=== PATIENT | female | born 1965 | race Caucasian/White ===

== ENCOUNTER → 2020-09-02 13:26 | Outpatient (CLI) | payer OTHER, SELFPAY ==
[2020-09-02] MEDS: COVID-19 VACC #1, MRNA(MOD) 100 MCG/0.5 ML VIAL IM (13:35)
== END ==
PROVIDERS: Visit Provider Internal Medicine
DX: Z23 Encounter for immunization (principal)
CPT/HCPCS: 0011A; 91301

== ENCOUNTER → 2020-09-30 13:20 | Outpatient (CLI) | payer OTHER, SELFPAY ==
[2020-09-30] MEDS: COVID-19 VACC #2, MRNA(MOD) 100 MCG/0.5 ML VIAL IM (13:28)
== END ==
PROVIDERS: Visit Provider Internal Medicine
DX: Z23 Encounter for immunization (principal)
CPT/HCPCS: 0012A; 91301

== ENCOUNTER 2024-11-22 22:57 | Emergency (ER) | payer BC, SELFPAY ==
--- NOTE | 2024-11-22 23:05 | EKG_ITS ---
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
[2024-11-22 23:12] VITALS: BP 123/77; PULSE 71; RESP 17; TEMP 36.8; O2SAT 98; BMI 34.7
--- NOTE | 2024-11-22 23:12 | DI.RAD.S_ITS ---
PROCEDURE: XR CHEST 1V INDICATIONS: Chest Pain, dizziness, leg pain, headache TECHNIQUE: One view of the chest was acquired. COMPARISON: None. FINDINGS: Surgical changes and devices: None. Lungs and pleura: Lungs are clear. No pleural effusions or pneumothorax. Mediastinum: Mediastinal contours appear normal. Heart size is normal. Bones and chest wall: No suspicious bony lesions. Overlying soft tissues appear unremarkable. IMPRESSION: No acute pulmonary process. Dictated by: Ros Brown M.D. on 11/22/2024 at 23:35 Approved by: Ros Brown M.D. on 11/22/2024 at 23:36
[2024-11-22 23:13] VITALS: PULSE 76; O2SAT 96
--- NOTE | 2024-11-22 23:22 | ED.CHESTPAIN ---
HPI - Chest Pain General Chief Complaint: Chest Pain Stated Complaint: Lt Leg pain, Dizziness, sweating, Headache Time Seen by Provider: 11/22/24 23:22 Source: patient Mode of arrival: Ambulatory History of Present Illness HPI narrative: 59-year-old female history of insomnia, anxiety, depression, going through divorce right now finished watching a movie tonight started to develop left leg pain behind the knee and went to the kitchen got dizzy lightheaded and sweaty and started to have jaw discomfort in left shoulder pain as well but denied active chest pain, shortness of breath, dyspnea on exertion, cough, sore throat. Other than what is stated 14 point review of system is negative. Related Data Home Medications ?Medication ?Instructions ?Recorded ?Confirmed cholecalciferol (vitamin D3) 25 25 mcg PO DAILY 06/07/24 06/07/24 mcg (1,000 unit) capsule vit B5 50 mg-B6 25 mg-PABA 25 cap PO DAILY 06/07/24 06/07/24 ls-mkwuvrclt-olvfstbm-P.ginseng capsule Previous Rx's ?Medication ?Instructions ?Recorded estradiol 0.01% (0.1 mg/gram) See Rx Instructions vaginal 06/07/24 vaginal cream (Estrace) .COMPLEX #42.5 grams trazodone 50 mg tablet 50 - 100 mg (1 - 2 x 50 mg) PO 06/07/24 BEDTIME PRN insomnia #60 tabs fluoxetine 20 mg capsule (Prozac) 20 mg PO DAILY #30 caps 09/20/24 lorazepam 0.5 mg tablet 0.25 - 0.5 mg (0.5 - 1 x 0.5 mg) 09/20/24 PO BID PRN anxiety #60 tabs Allergies Allergy/AdvReac Type Severity Reaction Status Date / Time No Known Drug Allergies Allergy Unverified 11/22/24 23:14 Review of Systems Review of Systems ROS Unobtainable: All systems reviewed & are unremarkable except as noted in HPI and below Patient History Medical History (Updated 11/23/24 @ 02:59 by Luis Frias DO) Insomnia JUDITH (generalized anxiety disorder) Major depression Marital conflict Depression (~1979) Mumps (~1974) Chicken pox (~1975) Vasomotor symptoms due to menopause Postmenopausal atrophic vaginitis Surgical History (Updated 01/16/24 @ 20:46 by Bethany Waterman) Anesthesia History of colonoscopy (~2020) History of tubal ligation (~01/1998) History of dilatation and curettage (~04/1996) Status post tubal ligation Family History (Updated 01/16/24 @ 20:47 by Bethany Waterman) Mother Fall Social History Smoking Status: Never smoker Smoking Status: Never smoker Exam Narrative Exam Narrative: GENERAL: [59] year old patient appears stated age. Well-developed patient, in mild distress. HEAD: Atraumatic. Normocephalic. EYES: Pupils equal round and reactive. Extraocular motions intact. No scleral icterus. No injection or drainage. ENT: Nose without bleeding, purulent drainage. Throat without erythema, tonsillar hypertrophy or exudate. Airway patent. NECK: Trachea midline. Non tender CARDIOVASCULAR: Regular rate and rhythm without murmurs, gallops, or rubs. RESPIRATORY: Clear to auscultation. Breath sounds equal bilaterally. No wheezes, rales, or rhonchi. GASTROINTESTINAL: Abdomen soft, non-tender, nondistended. EXTREMITIES: No edema or joint tenderness. Equal and symmetrical calf girth, nontender to palpation of bilateral calves and thighs motor sensory intact +2 DP +2 PT cap refill less than 2nd of left and right leg BACK: Nontender without deformity or crepitance. No flank tenderness. NEURO: AOx3. SKIN: No rash or erythema of visible areas Initial Vital Signs Initial Vital Signs: Vital Signs Temperature 98.2 F 11/22/24 23:12 Pulse Rate 71 11/22/24 23:12 Respiratory Rate 17 11/22/24 23:12 Blood Pressure 123/77 11/22/24 23:12 Pulse Oximetry 98 11/22/24 23:12 Oxygen Delivery Method Room Air 11/22/24 23:12 Scores HEART Score Heart Score history: Slightly Suspicious Heart Score EKG: Normal Heart Score Age: 45-64 years old Heart Score risk factors: No known risk factors Heart Score troponin: < or = to normal limit Heart Score Total: 1 Course Orders Ordered: ED Orders 11/22/24 23:05 EKG-12 Lead Stat 11/22/24 23:12 XR chest 1V Stat 11/22/24 23:17 Complete Blood Count AUTO DIFF Stat Comprehensive Metabolic Panel Stat Lipase Stat Magnesium Stat NT-proBNP (BNP-Adult 18+) Stat PTT Partial Thromboplastin [place] Stat Prothrombin Time INR Stat Troponin & CK Cardiac Panel Stat 11/22/24 23:41 D Dimer Stat Discontinued Medications Aspirin (Aspirin 81 Mg Chew Tab) 324 mg PO NOW ONE Stop: 11/22/24 23:13 Last Admin: 11/22/24 23:24 Dose: 324 mg Documented By: RADHA Vital Signs Vital signs: Vital Signs - 8 hr 11/22/24 23:12 Temperature 98.2 F Pulse Rate 71 Respiratory Rate 17 Blood Pressure 123/77 Pulse Oximetry 98 Oxygen Delivery Method Room Air MDM - Chest Pain Lab Data 11/22/24 23:17 11/22/24 23:17 Labs: Lab Results 11/22/24 Range/Units 23:17 WBC 6.3 (4.5-11.0) X10^3/uL RBC 4.26 (4.0-5.2) X10^6/uL Hgb 13.1 (12.0-16.0) g/dL Hct 38.0 (36-46) % MCV 89.2 (80-100) fL MCH 30.6 (26-34) PG MCHC 34.4 (30-36) % RDW 13.5 (11.6-14.8) % Plt Count 238 (150-400) X10^3/uL Neut % (Auto) 43.5 L (50-75) % Lymph % (Auto) 42.8 H (25-40) % Ray % (Auto) 11.0 (3-14) % Eos % (Auto) 1.4 L (2-4) % Baso % (Auto) 1.3 (0-2) % Neut # (Auto) 2700 (4541-7530) /uL Lymph # (Auto) 2700 (5727-6475) /uL Ray # (Auto) 700 (0-900) /uL Eos # (Auto) 100 (0-450) /uL Baso # (Auto) 100 (0-100) /uL PT 11.4 (9.4-12.5) SECONDS INR 1.0 (0.9-1.3) APTT 25 L (25.1-36.5) SECONDS Imaging Data CT scan - chest: Radiologist's Impression: [address] [address] [address] Scan Report Signed Patient: AliamaddiebacilioRamila (MEREDITH) [place] MR#: [id number] : 1965 Acct:[id number] Age/Sex: 59 / F Date of Service: 11/23/24 Loc: ED Accession Number: [id number] Procedure: CT angio chest PE protocol Ordering Provider: Luis Frias D.O. PROCEDURE: CT ANGIO CHEST PE PROTOCOL INDICATIONS: dizziness, elevated dimer TECHNIQUE: After the administration of intravenous contrast, 2 mm thick sections acquired from the pulmonary apices to the posterior costophrenic angles. 3-dimensional maximum intensity projection (MIP) coronal and sagittal reformats were then acquired through the thorax. For radiation dose reduction, the following was used: automated exposure control, adjustment of mA and/or kV according to patient size. COMPARISON: None. FINDINGS: Image quality: Diagnostic. Pulmonary arteries: Pulmonary arteries are normal in size, and demonstrate no intraluminal filling defects to suggest central pulmonary embolism. Lower Neck: No enlarged lymph nodes. Thyroid: No thyroid nodules which require sonographic follow up, per consensus guidelines. Axillae: No enlarged lymph nodes. Chest Wall: Unremarkable. Bones: Unremarkable. Lungs and Pleura: No pneumothorax or pleural effusions. No consolidation or suspicious nodules. Heart: Heart size is normal. No pericardial effusion. Thoracic Vessels: No aortic aneurysm. Mediastinum and Camila: No enlarged lymph nodes. Esophagus: No wall thickening. No hiatal hernia. Upper Abdomen: Visualized upper abdomen solid organs and bowel loops appear normal. IMPRESSION: No pulmonary embolus. No acute cardiopulmonary process. Dictated by: Ros Brown M.D. on 11/23/2024 at 1:11 Approved by: Ros Brown M.D. on 11/23/2024 at 1:11 US - DVT: Radiologist's Impression: [place] [address] Ultrasound Report Signed Patient: Ramila ToroMEREDITHAlfonso Mohamud MR#: [id number] : 1965 Acct:[id number] Age/Sex: 59 / F Date of Service: 11/23/24 Loc: ED Accession Number: [id number] Procedure: US periph venous low extrem lt Ordering Provider: Luis Frias D.O. PROCEDURE: US PERIPH VENOUS LOW EXTREM LT INDICATIONS: leg pain elevated dimer TECHNIQUE: Real-time imaging, as well as color and pulse Doppler interrogation, were performed of the lower extremity deep veins from the inguinal ligament to the popliteal fossa, with documentation of the visualized calf veins. COMPARISON: None. FINDINGS: The common femoral, femoral, popliteal, and the visualized calf veins are normally compressible, and free of intraluminal thrombus. Color and pulse Doppler demonstrate normal phasic intraluminal flow. There is normal augmentation response to distal compression maneuver. IMPRESSION: No findings of lower extremity deep venous thrombosis. ECG Data Interpretation: NSR HR 75 HI 168 QRS [address]-t wave change No previous EKG to compare MDM Narrative Medical decision making narrative: All lab work, vital signs, nurse triage note, medication list, previous ER visits, and all imaging studies reviewed. Two sets troponin negative. Heart score 1. Chest x-ray showed no acute process. Ultrasound showed no acute DVT. CTA chest showed no acute PE or any acute cardiopulmonary process. Differential diagnosis includes PE DVT STEMI NSTEMI GERD anxiety. DC home to return with new or worsening symptoms and to follow up with PCP in 1-2 weeks if no improvement in symptoms. Discharge Plan Departure Patient Disposition: Home Clinical Impression: Dizziness Acute leg pain Qualifiers: Laterality: left Qualified Code(s): M79.605 - Pain in left leg Instructions: DI for Dizziness-Nonvertigo Activity Restrictions/Additional Instructions: Return with new or worsening symptoms. Keep hydrated. Follow up with PCP in 1-2 weeks if no improvement in symptoms. Prescriptions: No Action lorazepam 0.5 mg tablet 0.25 - 0.5 mg PO BID PRN (Reason: anxiety) Qty: 60 1RF fluoxetine [Prozac] 20 mg capsule 20 mg PO DAILY Qty: 30 11RF [id number]-cord-rhod-P.ginseng [id number] mg capsule PO DAILY cholecalciferol (vitamin D3) 25 mcg (1,000 unit) capsule 25 mcg PO DAILY trazodone 50 mg tablet 50 - 100 mg PO BEDTIME PRN (Reason: insomnia) Qty: 60 11RF estradiol [Estrace] 0.01 % (0.1 mg/gram) cream See Rx Instructions vaginal .COMPLEX Qty: 42.5 5RF Rx Instructions: 500 mg intravaginally for 2 weeks, then 500 mg twice per week intravaginally for 1 to 2 weeks, then gradually reduce to 1/2 the initial dose twice per week. Referrals: Almita Washburn DO [Primary Care Provider, Family Practice] Stand Alone Forms: Patient Portal/API
[2024-11-22] MEDS: ASPIRIN 81 MG CHEW TAB 324 MG PO (23:24)
[2024-11-22 23:26] LABS: Add Manual Diff / Slide Review NO; Basophils Absolute Auto 100 /uL (0-100); Basophils Percent Auto 1.3 % (0-2); Eosinophils Absolute Auto 100 /uL (0-450); Eosinophils Percent Auto 1.4 % (2-4); Hemoglobin 13.1 g/dL (12.0-16.0); Lymphocytes Absolute Auto 2700 /uL (1100-4500); Lymphocytes Percent Auto 42.8 % (25-40); Mean Corpuscular HGB Conc 34.4 % (30-36); Mean Corpuscular Hemoglobin 30.6 PG (26-34); Mean Corpuscular Volume 89.2 fL (80-100); Monocytes Absolute Auto 700 /uL (0-900); Neutrophils Absolute Auto 2700 /uL (1500-7000); Neutrophils Percent Auto 43.5 % (50-75); Platelet Count 238 X10^3/uL (150-400); Red Blood Cell Count 4.26 X10^6/uL (4.0-5.2); Red Cell Distribution Width 13.5 % (11.6-14.8); White Blood Cell Count 6.3 X10^3/uL (4.5-11.0)
[2024-11-22 23:30] VITALS: PULSE 75; O2SAT 95
[2024-11-22 23:33] LABS: Prothrombin Time 11.4 SECONDS (9.4-12.5)
[2024-11-22 23:36] LABS: PTT Partial Thromboplastin Tim 25 SECONDS (25.1-36.5)
[2024-11-22 23:37] LABS: Alanine Aminotransferase 19 IU/L (<35); Albumin 4.2 g/dL (3.5-5.0); Albumin Globulin Ratio 1.7 (1.0-2.8); Alkaline Phosphatase 55 U/L (38-126); Aspartate Aminotransferase 25 IU/L (14-36); BUN Creatinine Ratio 9.5 (6-22); Bilirubin Total 0.3 mg/dL (0.2-1.3); Blood Urea Nitrogen 7 mg/dL (7-17); Calcium 9.3 mg/dL (8.4-10.2); Carbon Dioxide 28 mmol/L (22-32); Chloride 103 mmol/L (98-107); Creatine Kinase 129 U/L (30-135); Estimated Glomerular Filt Rate > 60 mL/min (>60); Globulin 2.5 g/dL (1.7-4.1); Glucose 107 mg/dL (70-99); HEMOLYSIS < 15 (0-50); Lipase 134 U/L (23-300); Magnesium 2.1 mg/dL (1.6-2.3); Potassium 3.7 mmol/L (3.4-5.1); Sodium 137 mmol/L (137-145); Total Protein 6.7 g/dL (6.3-8.2)
[2024-11-22 23:49] LABS: NT-proBNP (BNP-Adult 18+) 34 pg/mL (<125); Troponin I < 0.012 ng/mL (0.01-0.034)
[2024-11-22 23:59] LABS: D Dimer 1656 ng/ml (<500)
[2024-11-23] VITALS (8 sets, daily range): BP systolic 106–116; BP diastolic 69–78; PULSE 63–74; RESP 16–18; O2SAT 94–97
--- NOTE | 2024-11-23 00:28 | DI.CT.S_ITS ---
PROCEDURE: CT ANGIO CHEST PE PROTOCOL INDICATIONS: dizziness, elevated dimer TECHNIQUE: After the administration of intravenous contrast, 2 mm thick sections acquired from the pulmonary apices to the posterior costophrenic angles. 3-dimensional maximum intensity projection (MIP) coronal and sagittal reformats were then acquired through the thorax. For radiation dose reduction, the following was used: automated exposure control, adjustment of mA and/or kV according to patient size. COMPARISON: None. FINDINGS: Image quality: Diagnostic. Pulmonary arteries: Pulmonary arteries are normal in size, and demonstrate no intraluminal filling defects to suggest central pulmonary embolism. Lower Neck: No enlarged lymph nodes. Thyroid: No thyroid nodules which require sonographic follow up, per consensus guidelines. Axillae: No enlarged lymph nodes. Chest Wall: Unremarkable. Bones: Unremarkable. Lungs and Pleura: No pneumothorax or pleural effusions. No consolidation or suspicious nodules. Heart: Heart size is normal. No pericardial effusion. Thoracic Vessels: No aortic aneurysm. Mediastinum and Camila: No enlarged lymph nodes. Esophagus: No wall thickening. No hiatal hernia. Upper Abdomen: Visualized upper abdomen solid organs and bowel loops appear normal. IMPRESSION: No pulmonary embolus. No acute cardiopulmonary process. Dictated by: Ros Brown M.D. on 11/23/2024 at 1:11 Approved by: Ros Brown M.D. on 11/23/2024 at 1:11
--- NOTE | 2024-11-23 00:28 | DI.US.S_ITS ---
PROCEDURE: US PERIPH VENOUS LOW EXTREM LT INDICATIONS: leg pain elevated dimer TECHNIQUE: Real-time imaging, as well as color and pulse Doppler interrogation, were performed of the lower extremity deep veins from the inguinal ligament to the popliteal fossa, with documentation of the visualized calf veins. COMPARISON: None. FINDINGS: The common femoral, femoral, popliteal, and the visualized calf veins are normally compressible, and free of intraluminal thrombus. Color and pulse Doppler demonstrate normal phasic intraluminal flow. There is normal augmentation response to distal compression maneuver. IMPRESSION: No findings of lower extremity deep venous thrombosis. Dictated by: Ros Brown M.D. on 11/23/2024 at 1:22 Approved by: Ros Brown M.D. on 11/23/2024 at 1:22
--- NOTE | 2024-11-23 00:37 | PC.NURSE ---
Pt to imaging via ED stretcher with polysomnographic tech
[2024-11-23 02:04] LABS: Troponin I < 0.012 ng/mL (0.01-0.034)
== END 2024-11-23 03:17 | disposition home or self-care (01) ==
PROVIDERS: Emergency Provider Family Medicine; PCP Family Medicine
DX: R42 Dizziness and giddiness (principal); M79.605 Pain in left leg
CPT/HCPCS: 36415; 71045; 71275; 80053; 82550; 83690; 83735; 83880; 84484; 85025; 85379; 85610; 85730; 93005; 93010; 93971; 99284; Q9967